=== PATIENT | male | born 1965 | race Two or more races ===

== ENCOUNTER 2017-05-17 13:44 | Emergency (ER) | payer BC ==
[~2017-05-17] VITALS: Ht 175.3 cm; Wt 73.5 kg
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
[2017-05-17] MEDS ORDERED: HYDROCODONE/APAP 5/325MG 1 EACH TABLET ONE (14:13)
--- NOTE | 2017-05-17 14:17 | NUR ---
NORCO 5 GIVEN PO PER ALLAN FUENTES VERBAL ORDER.
[2017-05-17] MEDS ORDERED: HYDROCODONE/APAP 5/325MG 1 EACH TABLET PO ONE (14:30)
--- NOTE | 2017-05-17 14:30 | NUR ---
PT TO RADIOLOGY FOR HEAD AND LUMBAR SPINE CT SCAN VIA [facility].
--- NOTE | 2017-05-17 16:01 | NUR ---
Patient discharged to home in stable condition. Written and verbal after care instructions given. Patient verbalizes understanding of instruction.
[2017-05-17 16:05] VITALS: BP 136/87
== END 2017-05-17 16:06 | disposition home or self-care (01) ==
LOC: ER 13:46
DX: S32.019A Unspecified fracture of first lumbar vertebra, initial encounter for closed fracture (principal); R51 Headache; W11.XXXA Fall on and from ladder, initial encounter; Y93.89 Activity, other specified; Y92.89 Other specified places as the place of occurrence of the external cause; Y99.9 Unspecified external cause status
CPT/HCPCS: 70450-TC; 72131-TC; A4606; Z7610